=== PATIENT | male | born 1970 | race Asian ===

== ENCOUNTER 2017-06-20 06:19 | Inpatient (IN) | payer MEDICARE, MEDICAID ==
[~2017-06-20] VITALS: Ht 167.6 cm; Wt 69.4 kg
[~2017-06-20 06:19] MED LIST: CA C1TAB73 PO; OLAN5Z PO
[2017-06-20 07:53] LABS: BASOPHILS # (AUTO) 0.06 K/uL (0.00-0.20); BASOPHILS % (AUTO) 0.8 % (0.0-2.0); EOSINOPHILS # (AUTO) 0.33 K/uL (0.00-0.70); EOSINOPHILS % (AUTO) 3.98 % (1.0-6.0); HEMATOCRIT 33.1 % (41-53); LYMPHOCYTES # (AUTO) 1.7 K/uL (1.0-4.8); LYMPHOCYTES % (AUTO) 19.8 % (22.0-44.0); MEAN CORPUSCULAR HEMOGLOBIN 25.8 pg (26.0-34.0); MEAN CORPUSCULAR HGB CONC 33.1 G/dL (31.0-37.0); MEAN CORPUSCULAR VOLUME 78 fL (80-100); MONOCYTES % (AUTO) 11.9 % (2.0-9.0); NEUTROPHILS # (AUTO) 5.3 K/uL (1.8-7.7); NEUTROPHILS % (AUTO) 63.6 % (40.0-70.0); PLATELET COUNT (AUTO) 333 K/uL (150-450); RED BLOOD CELL COUNT(AUTO) 4.25 MIL/uL (4.50-5.90); RED CELL DISTRIBUTION WIDTH 16.2 % (11.5-14.5); WHITE BLOOD COUNT (AUTO) 8.3 K/uL (4.5-11.0)
[2017-06-20 08:05] LABS: ANION GAP 7 mmol/L (8-16); CALCIUM, TOTAL 8.9 mg/dL (8.8-10.5); CARBON DIOXIDE 28 mmol/L (22-29); CHLORIDE 108 mmol/L (98-107); CREATININE 0.78 mg/dL (0.60-1.30); GLOMERULAR FILTR. RATE CALC > 60 mL/min (>60); POTASSIUM 3.9 mmol/L (3.5-5.1); SODIUM SERUM 143 mmol/L (136-145); UREA NITROGEN, BLOOD 17 mg/dL (7-18)
[2017-06-20 08:11] LABS: ALANINE AMINOTRANSFERASE 45 U/L (12-78); ALBUMIN 3.4 g/dL (3.4-5.0); ASPARTATE AMINOTRANSFERASE 38 U/L (15-37); BILIRUBIN,TOTAL 0.7 mg/dL (0.1-1.0)
[2017-06-20 08:17] LABS: RBC MORPHOLOGY COMMENT ABNORMAL RBC MORPH
[2017-06-20] MEDS ORDERED: LORazepam 2 MG TABLET PO PRN (09:30)
[2017-06-20] MEDS ORDERED: HALOPERIDOL 5 MG TABLET PO PRN (09:30)
[2017-06-20] MEDS ORDERED: ZOLPIDEM TARTRATE 10 MG TABLET PO PRN (09:30)
[2017-06-20 12:50] VITALS: BP 102/60
[2017-06-21] MEDS: OLANZapine 5 MG RAPDIS TABLET PO SCH (20:51)
[2017-06-22 06:59] LABS: CHOL/HDL RATIO 3.4 (4.2-7.3)
[2017-06-22] MEDS ORDERED: LORazepam 2 MG/ML VIAL IM ONE (10:15)
[2017-06-22] MEDS ORDERED: DiphenhydrAMINE HCL 50 MG/ML VIAL IM ONE (10:15)
[2017-06-22] MEDS ORDERED: HALOPERIDOL LACTATE 5 MG/ML VIAL IM ONE (10:15)
[2017-06-22] MEDS ORDERED: LORazepam 2 MG/ML VIAL ONE (10:18)
[2017-06-22] MEDS ORDERED: HALOPERIDOL LACTATE 5 MG/ML VIAL ONE ×2 (10:19→10:20)
[2017-06-22] MEDS ORDERED: DiphenhydrAMINE HCL 50 MG/ML VIAL ONE (10:19)
[2017-06-22] MEDS: OLANZapine 5 MG RAPDIS TABLET PO SCH (20:49)
[2017-06-23 08:05] VITALS: BP 108/69
[2017-06-23] MEDS: OLANZapine 5 MG RAPDIS TABLET PO SCH (21:06)
[2017-06-23 23:05] VITALS: BP 107/73
[2017-06-24 03:58] VITALS: BP 128/82
[2017-06-24 10:38] VITALS: BP 107/74
[2017-06-24 17:04] VITALS: BP 118/76
[2017-06-24] MEDS: OLANZapine 5 MG RAPDIS TABLET PO SCH (20:34)
[2017-06-25 08:21] VITALS: BP 112/75
[2017-06-25 17:21] VITALS: BP 107/76
[2017-06-25] MEDS: OLANZapine 5 MG RAPDIS TABLET PO SCH (20:50)
[2017-06-26 08:45] VITALS: BP 100/66
[2017-06-26 17:42] VITALS: BP 104/68
[2017-06-26] MEDS: OLANZapine 5 MG RAPDIS TABLET PO SCH (20:31)
[2017-06-27 08:30] VITALS: BP 122/68
[2017-06-27 17:03] VITALS: BP 145/75
[2017-06-27] MEDS: OLANZapine 5 MG RAPDIS TABLET PO SCH (20:13)
[2017-06-28 04:30] VITALS: BP 115/62
[2017-06-28 10:27] VITALS: BP 126/82
[2017-06-28 17:11] VITALS: BP 119/76
[2017-06-28] MEDS: OLANZapine 5 MG RAPDIS TABLET PO SCH (20:20)
[2017-06-29 06:24] VITALS: BP 121/80
[2017-06-29 10:01] VITALS: BP 108/73
[2017-06-29 17:00] VITALS: BP 113/68
[2017-06-29] MEDS: OLANZapine 5 MG RAPDIS TABLET PO SCH (20:39)
[2017-06-30 05:00] VITALS: BP 117/66
[2017-06-30 08:43] VITALS: BP 114/71
[2017-06-30 16:15] VITALS: BP 120/73
[2017-06-30] MEDS: OLANZapine 5 MG RAPDIS TABLET PO SCH (20:42)
[2017-07-01 02:25] VITALS: BP 115/77
[2017-07-01 08:22] VITALS: BP 118/83
[2017-07-01 17:04] VITALS: BP 109/65
[2017-07-01] MEDS: OLANZapine 5 MG RAPDIS TABLET PO SCH (20:49)
[2017-07-02 09:15] VITALS: BP 111/71
[2017-07-02] MEDS: OLANZapine 5 MG RAPDIS TABLET PO SCH (20:22)
[2017-07-02] MEDS ORDERED: OLAN5Z PO (20:49)
== END 2017-07-02 22:42 | disposition home or self-care (01) | DRG 885 ==
LOC: EMS 06:20 → 3EI 12:01 → 3EX 06-22 15:52
PROVIDERS: ADMIT Psychiatry & Neurology Child & Adolescent Psychiatry; ATTEND Psychiatry & Neurology Child & Adolescent Psychiatry
DX: F20.0 Paranoid schizophrenia (principal); F94.0 Selective mutism
CPT/HCPCS: 99285; G0480; J1200; J1630; J2060